=== PATIENT | female | born 1960 ===

== ENCOUNTER 2016-08-20 08:26 | Emergency (ER) | payer MEDICAID ==
[2016-08-20 08:33] VITALS: BP 125/79; TEMP 98
[2016-08-20 08:35] VITALS: BMI 27.4
[2016-08-20 08:45] VITALS: PULSE 58; O2SAT 98
--- NOTE | 2016-08-20 09:17 | ED PDOC ---
Lower Extremity Pain/Injury Time Seen by Provider: 08/20/16 08:30 Chief Complaint (Nursing): Lower Extremity Problem/Injury Chief Complaint (Provider): Left Foot Pain History Per: Patient History/Exam Limitations: no limitations Onset/Duration Of Symptoms: Days (x1) Current Symptoms Are (Timing): Still Present Additional Complaint(s): Rupal Youngblood is a 55 year old female with a history of hypothyroidism that presents to the ED with a chief complaint of left foot pain that began last night when she was walking downstairs and improperly stepped on her left foot, which had slightly inverted. Patient denies any swelling. Past Medical History Reviewed: Historical Data, Nursing Documentation, Vital Signs Vital Signs: Last Vital Signs Temp 98 F 08/20/16 08:42 Pulse 58 L 08/20/16 08:42 Resp 20 08/20/16 08:42 BP 125/79 08/20/16 08:42 Pulse Ox 98 08/20/16 08:42 - Medical History PMH: Hypothyroidism - Surgical History Surgical History: No Surg Hx - Family History Family History: States: Unknown Family Hx - Social History Current smoker - smoking cessation education provided: Yes (smokes less than 10 cigarettes per day) Alcohol: Social Drugs: Denies - Home Medications Home Medications: Ambulatory Orders Medication Instructions Recorded Metoprolol Tartrate [Lopressor] 12.5 mg PO BID #20 tab 04/09/16 - Allergies Allergies/Adverse Reactions: Allergies Allergy/AdvReac Type Severity Reaction Status Date / Time Penicillins Allergy SWELLING Verified 08/20/16 08:42 Review of Systems Cardiovascular: Negative for: Edema (no left foot swelling) Musculoskeletal: Positive for: Foot Pain (Patient reports pain on dorsum of left foot.) Physical Exam - Reviewed Nursing Documentation Reviewed: Yes Vital Signs Reviewed: Yes - Physical Exam Appears: Positive for: Non-toxic, No Acute Distress Head Exam: Positive for: ATRAUMATIC, NORMOCEPHALIC Skin: Positive for: Normal Color, Warm Cardiovascular/Chest: Positive for: Regular Rate, Rhythm. Negative for: Murmur Respiratory: Positive for: Normal Breath Sounds. Negative for: Wheezing Pulses-Dorsalis Pedis (L): 2+ Pulses-Dorsalis Pedis (R): 2+ Extremity: Positive for: Normal ROM (full ROM left foot.), Tenderness (minimal tenderness to palpation dorsum of left foot.), Capillary Refill (<2 seconds), Other (No skin changes or hematoma on left foot. No open wounds. ). Negative for: Swelling Neurologic/Psych: Positive for: Alert, Oriented - ECG O2 Sat by Pulse Oximetry: 98 (RA) Pulse Ox Interpretation: Normal Medical Decision Making Medical Decision Making: Impression: Left Foot Pain normal exam rule out fracture Plan: * X-Ray Left Ankle AP Lat Post * X-Ray Left Foot AP Lat * Ibuprofen 600 mg PO * Reevaluation 11:35 X-Rays appear negative. Left foot will be wrapped up w rl bandage, patient is advised to follow up with podiatry for further evaluation. Patient is stable for discharge home. Clinical Impression: Foot Injury Scribe Attestation: Documented by Cary Dailey, acting as a scribe for Tod Chacon MD. Provider Scribe Attestation: All medical record entries made by the Scribe were at my direction and personally dictated by me. I have reviewed the chart and agree that the record accurately reflects my personal performance of the history, physical exam, medical decision making, and the department course for this patient. I have also personally directed, reviewed, and agree with the discharge instructions and disposition. Disposition - Clinical Impression Clinical Impression: Foot injury - Patient ED Disposition Is Patient to be Admitted: No Counseled Patient/Family Regarding: Studies Performed, Diagnosis, Need For Followup - Disposition Referrals: [facility] [Outside] Podiatry Clinic [Outside] Disposition: Routine/Home Disposition Time: 11:00 Condition: IMPROVED Additional Instructions: follow up with podiatry for further evaluation return to the ED with any worsening or concerning symptoms. Instructions: Foot Sprain (ED) Forms: [facility] ED School/Work Excuse Print Language: ITALIAN
[2016-08-20 12:11] VITALS: RESP 16
--- NOTE | 2016-08-20 12:40 | RAD ---
PROCEDURE: Left Ankle Radiographs. HISTORY: fall COMPARISON: None FINDINGS: BONES: Normal. No fracture. JOINTS: Normal. No osteoarthritis. Ankle mortise maintained. Talar dome intact SOFT TISSUES: Normal. OTHER FINDINGS: None. IMPRESSION: Normal left ankle radiographs.
--- NOTE | 2016-08-20 12:40 | RAD ---
PROCEDURE: Left Foot Radiographs. HISTORY: foot pain COMPARISON: None. FINDINGS: BONES: Normal. No fracture. JOINTS: Normal. SOFT TISSUES: Normal. OTHER FINDINGS: None. IMPRESSION: Normal left foot radiographs.
== END 2016-08-20 12:09 | disposition home or self-care (01) ==
LOC: H.ER 08:26
DX: S99.922A Unspecified injury of left foot, initial encounter (principal); X50.9XXA Other and unspecified overexertion or strenuous movements or postures, initial encounter; Y92.89 Other specified places as the place of occurrence of the external cause; E03.9 Hypothyroidism, unspecified; Z88.0 Allergy status to penicillin

== ENCOUNTER 2016-11-22 09:11 | Emergency (ER) | payer MEDICAID ==
[2016-11-22 09:45] VITALS: BMI 19.3
[2016-11-22] MEDS ORDERED: Sodium Chloride 0.9% 1,000 ML IV STA (09:52)
--- NOTE | 2016-11-22 09:55 | ED PDOC ---
HPI: Abdomen Time Seen by Provider: 11/22/16 09:27 Chief Complaint (Nursing): Abdominal Pain Chief Complaint (Provider): Abd pain History Per: Patient History/Exam Limitations: no limitations Onset/Duration Of Symptoms: Days (Wed) Additional Complaint(s): Diffuse abd pain that is bubbling. Nausea, vomit, diarrhea, nonbloody. Had pork Tues and symptoms started Wed. Saw pcp and given zofran and cipro. Took imodium as well. States the diarrhea has stopped but still has the bubbling and nausea. No weakness, headaches, chest pain, dyspnea, weakness, fever. Has bodyaches. No dysuria. No fever. Past Medical History Reviewed: Nursing Documentation, Vital Signs Vital Signs: Last Vital Signs Temp 99.1 F 11/22/16 09:30 Pulse 68 11/22/16 09:30 Resp 16 11/22/16 09:30 BP 116/64 11/22/16 09:30 Pulse Ox 98 11/22/16 11:26 - Medical History PMH: Hypothyroidism - Surgical History Surgical History: No Surg Hx - Family History Family History: States: Unknown Family Hx - Social History Current smoker - smoking cessation education provided: No Alcohol: None Drugs: Denies - Home Medications Home Medications: Ambulatory Orders Medication Instructions Recorded Metoprolol Tartrate [Lopressor] 12.5 mg PO BID #20 tab 04/09/16 - Allergies Allergies/Adverse Reactions: Allergies Allergy/AdvReac Type Severity Reaction Status Date / Time Penicillins Allergy SWELLING Verified 08/20/16 08:42 Review of Systems ROS Statement: Except As Marked, All Systems Reviewed And Found Negative Gastrointestinal: Positive for: Nausea, Vomiting, Abdominal Pain, Diarrhea Musculoskeletal: Positive for: Other (body aches) Physical Exam - Reviewed Nursing Documentation Reviewed: Yes Vital Signs Reviewed: Yes - Physical Exam Appears: Positive for: Non-toxic, No Acute Distress Head Exam: Positive for: ATRAUMATIC, NORMAL INSPECTION, NORMOCEPHALIC Skin: Positive for: Normal Color, Warm, DRY Eye Exam: Positive for: EOMI, Normal appearance, PERRL ENT: Positive for: Normal ENT Inspection Neck: Positive for: Normal, Painless ROM Cardiovascular/Chest: Positive for: Regular Rate, Rhythm Respiratory: Positive for: CNT, Normal Breath Sounds Gastrointestinal/Abdominal: Positive for: Bowel Sounds, Soft, Tenderness ( diffuse) Back: Positive for: Normal Inspection. Negative for: L CVA Tenderness, R CVA Tenderness Extremity: Positive for: Normal ROM. Negative for: Tenderness, Pedal Edema Neurologic/Psych: Positive for: Alert, Oriented - Laboratory Results Result Diagrams: 11/22/16 10:09 11/22/16 10:09 Interpretation Of Abn Labs: 11 wbc - ECG O2 Sat by Pulse Oximetry: 98 - Progress ED Course And Treament: 1126: Still has pain. Will get Ct. 1454: Stable. Dr. Garcia to take over care. Fu ct. Disposition - Clinical Impression Clinical Impression: Abdominal pain - Patient ED Disposition Is Patient to be Admitted: Transfer of Care - Disposition Disposition: Transfer of Care Disposition Time: 14:54 Condition: STABLE Patient Signed Over To: Kamilah Garcia
[2016-11-22 10:16] LABS: BASO # 0.1 K/uL (0.0-0.2); EOS # 0.2 K/uL (0.0-0.7); EOS % 1.9 % (0.0-4.0); HEMATOCRIT 41.2 % (34.0-47.0); LYMPH # 3.2 K/uL (1.0-4.3); LYMPH % 28.6 % (20.0-40.0); MEAN CORPUSCULAR HEMOGLOBIN 30.9 pg (27.0-31.0); MEAN CORPUSCULAR HGB CONC 33.2 g/dL (33.0-37.0); MEAN PLATELET VOLUME 10.1 fl (7.2-11.7); MONO # 0.8 K/uL (0.0-0.8); MONO % 7.1 % (0.0-10.0); NEUT # 6.8 K/uL (1.8-7.0); NEUT % 61.4 % (50.0-75.0); RED CELL DISTRIBUTION WIDTH 14.3 % (11.5-14.5)
[2016-11-22 10:36] LABS: ALB/GLOB RATIO 1.4 (1.0-2.1); ALKALINE PHOSPHATASE 93 U/L (38-126); ALT/SGPT 34 U/L (9-52); AST/SGOT 31 U/L (14-36); BILIRUBIN,TOTAL 0.4 mg/dl (0.2-1.3); BLOOD UREA NITROGEN 13 mg/dl (7-17); CALCIUM 8.6 mg/dL (8.4-10.2); CARBON DIOXIDE 25 mmol/L (22-30); CHLORIDE 108 mmol/L (98-107); GFR AFRICAN-AMERICAN > 60; GLUCOSE,RANDOM 100 mg/dL (65-105); LIPASE 17 U/L (23-300); POTASSIUM 3.9 MMOL/L (3.6-5.0); SODIUM 145 mmol/l (132-148); TOTAL PROTEIN 7.2 G/DL (6.3-8.2)
[2016-11-22] MEDS ORDERED: Iohexol 240 (50 ml) PO ONE (11:25)
[2016-11-22] MEDS ORDERED: Iohexol 240 (50 ml) ONE (11:50)
[2016-11-22] MEDS ORDERED: Iohexol 300 100 ML IJ ONE (14:03)
[2016-11-22] MEDS ORDERED: Sodium Chloride 0.9% 50 ML IV ONE (14:04)
--- NOTE | 2016-11-22 15:07 | CT ---
PROCEDURE: CT Abdomen and Pelvis with contrast HISTORY: abd pain COMPARISON: None. TECHNIQUE: Contrast dose: 95 milliliters Radiation dose: Total exam DLP = 1025 mGy-cm. This CT exam was performed using one or more of the following dose reduction techniques: Automated exposure control, adjustment of the mA and/or kV according to patient size, and/or use of iterative reconstruction technique. FINDINGS: LOWER THORAX: Minor atelectasis. No infiltrate or effusion. Visualized distal esophagus is unremarkable. LIVER: Mildly fatty infiltration of the liver. There is an area of focal round higher density seen in the central aspect of the quadrate lobe on axial images 36 through 44 series 3 and coronal images 46 through 51. This 3.3 x 2.0 x 2.7 cm. This probably reflects an area of focal fatty sparing. Other etiologies including small hemangioma could not be excluded, although considered less likely. Follow-up ultrasound as an outpatient would be suggested. GALLBLADDER AND BILE DUCTS: Unremarkable. PANCREAS: Unremarkable. No gross lesion or ductal dilatation. SPLEEN: Unremarkable. ADRENALS: Unremarkable. No mass. KIDNEYS AND URETERS: Unremarkable. No hydronephrosis. No solid mass. VASCULATURE: Unremarkable. No aortic aneurysm. BOWEL: No bowel wall thickening or pericolonic inflammatory process is identified. No small bowel dilatation or small bowel obstruction is noted. APPENDIX: Normal appendix. PERITONEUM: No ascites is seen. No mesenteric or omental thickening is noted. LYMPH NODES: Small scattered subcentimeter retroperitoneal lymph nodes and minimal mesenteric lymph nodes. BLADDER: Unremarkable. REPRODUCTIVE: Unremarkable. BONES: Degenerative disc disease is noted in the lumbar spine. No lytic process or fracture is noted. OTHER FINDINGS: None. IMPRESSION: No appreciable acute inflammatory process in the abdomen or pelvis. In particular there is no evidence of bowel obstruction or colitis. There is underfilling of the rectosigmoid region limiting evaluation. No CT scan evidence of appendicitis. Focal round demarcated area of increased density in the posterior central quadrate lobe region of the liver within a diffusely fatty infiltrated liver. Finding more than likely represents an area of focal fatty sparing. Other etiologies including hemangioma are not excluded. Follow-up outpatient ultrasound or MRI would be suggested for further evaluation.
[2016-11-22 15:28] VITALS: BP 122/74; PULSE 70; RESP 18; TEMP 96.3; O2SAT 97
== END 2016-11-22 15:28 | disposition home or self-care (01) ==
LOC: H.ER 09:11
DX: R10.9 Unspecified abdominal pain (principal); Z88.0 Allergy status to penicillin; E03.9 Hypothyroidism, unspecified
CPT/HCPCS: 74177; 80053; 83690; 85025; 96374; 99285; J1885; J2270; J2405; J7040; Q9966; Q9967

== ENCOUNTER 2017-12-07 18:06 | Emergency (ER) | payer MEDICAID ==
[2017-12-07 18:06] VITALS: BMI 27.4
[2017-12-07 18:39] VITALS: BP 133/68; PULSE 78; RESP 18; TEMP 97.7; O2SAT 99
--- NOTE | 2017-12-07 18:52 | ED PDOC ---
HPI: Hypertension/Hypotension Time Seen by Provider: 12/07/17 18:41 Chief Complaint (Nursing): Palpitations History Per: Patient Onset/Duration Of Symptoms: Days (1) Current Symptoms Are (Timing): Still Present Associated Symptoms: denies: Chest Pain, Dyspnea, Focal Weakness, Headache Quality Of Symptoms: Rapid Heart Rate Severity: Mild Pain Scale Rating Of: 0 Exacerbating Factor(s): Pos: Injestion Of Caffeinated Beverages Past Medical History Reviewed: Historical Data, Nursing Documentation, Vital Signs Vital Signs: Last Vital Signs Temp 97.7 F 12/07/17 18:13 Pulse 78 12/07/17 18:13 Resp 18 12/07/17 18:13 BP 133/68 12/07/17 18:13 Pulse Ox 99 12/07/17 18:13 - Medical History PMH: Hypothyroidism - Surgical History Surgical History: No Surg Hx - Family History Family History: States: Unknown Family Hx - Home Medications Home Medications: Ambulatory Orders Medication Instructions Recorded RX: Metoprolol Tartrate [Lopressor] 12.5 mg PO BID #20 tab 04/09/16 Famotidine [Pepcid] 20 mg PO DAILY PRN #6 tab 11/22/16 Ibuprofen [Motrin] 600 mg PO TID 7 Days tab 11/22/16 - Allergies Allergies/Adverse Reactions: Allergies Allergy/AdvReac Type Severity Reaction Status Date / Time Penicillins Allergy SWELLING Verified 08/20/16 08:42 Review of Systems ROS Statement: Except As Marked, All Systems Reviewed And Found Negative Musculoskeletal: Positive for: Foot Pain (injury) Physical Exam - Reviewed Nursing Documentation Reviewed: Yes Vital Signs Reviewed: Yes - Physical Exam Appears: Positive for: Non-toxic, No Acute Distress Head Exam: Positive for: ATRAUMATIC, NORMAL INSPECTION Skin: Positive for: Warm, Dry Eye Exam: Positive for: EOMI Cardiovascular/Chest: Positive for: Regular Rate, Rhythm Respiratory: Positive for: Normal Breath Sounds Gastrointestinal/Abdominal: Positive for: Soft. Negative for: Tenderness Extremity: Positive for: Normal ROM, Other (rihgt foot 4-5 toes swelling echimosis) Neurologic/Psych: Positive for: Alert, Oriented - Laboratory Results Result Diagrams: 12/07/17 19:18 12/07/17 19:18 - ECG O2 Sat by Pulse Oximetry: 99 Medical Decision Making Medical Decision Making: Impression Palpitations, right foot pain with injury Diff include cardiac arrhythmia, anxiety, ACS R/o foot fracture Plan EKG Labs Foot xray reassess Disposition - Clinical Impression Clinical Impression: Palpitations, Foot injury - Patient ED Disposition Is Patient to be Admitted: No Counseled Patient/Family Regarding: Studies Performed, Diagnosis - Disposition Referrals: Samir Obrien [Family Provider] - Disposition: Transfer of Care Disposition Time: 19:00 Condition: STABLE Instructions: Palpitations Forms: [employer] (Libyan), [facility] ED School/Work Excuse Patient Signed Over To: Lucian Hoyt
[2017-12-07 19:22] LABS: BASO # 0.1 K/uL (0.0-0.2); BASO % 0.8 % (0.0-2.0); EOS # 0.5 K/uL (0.0-0.7); EOS % 4.3 % (0.0-4.0); HEMOGLOBIN 13.5 g/dL (12.0-16.0); LYMPH # 4.1 K/uL (1.0-4.3); LYMPH % 36.1 % (20.0-40.0); MEAN CELL VOLUME 95.2 fl (81.0-99.0); MEAN CORPUSCULAR HEMOGLOBIN 31.7 pg (27.0-31.0); MEAN CORPUSCULAR HGB CONC 33.3 g/dL (33.0-37.0); MEAN PLATELET VOLUME 10.2 fl (7.2-11.7); MONO # 0.8 K/uL (0.0-0.8); MONO % 7.2 % (0.0-10.0); NEUT # 5.8 K/uL (1.8-7.0); NEUT % 51.6 % (50.0-75.0); NRBC % 0.1 % (0.0-0.0); RBC 4.27 Mil/uL (3.80-5.20); RED CELL DISTRIBUTION WIDTH 13.7 % (11.5-14.5); WHITE BLOOD COUNT 11.3 K/uL (4.8-10.8)
--- NOTE | 2017-12-07 19:23 | ED PDOC ---
- Laboratory Results Result Diagrams: 12/07/17 19:18 12/07/17 19:18 - ECG O2 Sat by Pulse Oximetry: 99 (RA) Pulse Ox Interpretation: Normal Medical Decision Making Medical Decision Making: Time: 1899 --Patient signed out to this provider by Dr. Recinos, pending XR, labs and reevaluation. Time: 2121 --XR demonstrate no fracture or dislocation. Labs reviewed and demonstrate no clinically significant abnormalities. She has an appointment with Dr. Obrien tomorrow. Patient reports she feels improvement in symptoms. Diagnoses foot inj ury and palpitations. Scribe Attestation: Documented by Valencia Loya, acting as a scribe for Lucian Hoyt MD Provider Scribe Attestation: All medical record entries made by the Scribe were at my direction and personally dictated by me. I have reviewed the chart and agree that the record accurately reflects my personal performance of the history, physical exam, medical decision making, and the department course for this patient. I have also personally directed, reviewed, and agree with the discharge instructions and disposition. Disposition - Clinical Impression Clinical Impression: Palpitations, Foot injury - POA Present On Arrival: Falls Or Trauma - Disposition Referrals: Samir Obrien [Family Provider] - Disposition: Routine/Home Disposition Time: 21:00 Condition: STABLE Instructions: Palpitations Forms: [employer] (Ivorian), [facility] ED School/Work Excuse
[2017-12-07 19:50] LABS: BLOOD UREA NITROGEN 20 mg/dl (7-17); CALCIUM 9.3 mg/dL (8.4-10.2); GFR NON-AFRICAN AMERICAN > 60
--- NOTE | 2017-12-08 08:26 | RAD ---
Date of service: 12/07/2017 PROCEDURE: Right Foot Radiographs. HISTORY: right foot injury COMPARISON: None. FINDINGS: BONES: There is diffuse bone demineralization. There is no acute displaced fracture or bone destruction. Bone alignment is normal. JOINTS: Mild degenerative osteoarthrosis in the 1st MTP joint. SOFT TISSUES: Normal. OTHER FINDINGS: None. IMPRESSION: No acute fracture or dislocation.
== END 2017-12-07 21:31 | disposition home or self-care (01) ==
LOC: H.ER 18:06
DX: R00.2 Palpitations (principal); S99.921A Unspecified injury of right foot, initial encounter; I10 Essential (primary) hypertension; Z88.0 Allergy status to penicillin; E03.9 Hypothyroidism, unspecified

== ENCOUNTER 2018-04-18 07:33 | Emergency (ER) | payer MEDICAID ==
[2018-04-18 07:42] VITALS: BMI 28.3
[2018-04-18] MEDS ORDERED: Sodium Chloride 0.9% 1,000 ML IV STA (08:04)
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
[2018-04-18 09:24] LABS: BASO % 0.3 % (0.0-2.0); EOS # 0.1 K/uL (0.0-0.7); EOS % 1.4 % (0.0-4.0); HEMOGLOBIN 14.6 g/dL (12.0-16.0); LYMPH # 2.3 K/uL (1.0-4.3); LYMPH % 21.4 % (20.0-40.0); MEAN CELL VOLUME 94.6 fl (81.0-99.0); MEAN CORPUSCULAR HEMOGLOBIN 31.6 pg (27.0-31.0); MEAN CORPUSCULAR HGB CONC 33.4 g/dL (33.0-37.0); MEAN PLATELET VOLUME 10.4 fl (7.2-11.7); MONO # 0.7 K/uL (0.0-0.8); MONO % 6.3 % (0.0-10.0); NEUT # 7.4 K/uL (1.8-7.0); NEUT % 70.6 % (50.0-75.0); NRBC % 0.1 % (0.0-0.0); RBC 4.61 Mil/uL (3.80-5.20); RED CELL DISTRIBUTION WIDTH 13.9 % (11.5-14.5); WHITE BLOOD COUNT 10.6 K/uL (4.8-10.8)
[2018-04-18 09:32] LABS: BLOOD UREA NITROGEN 10 mg/dl (7-17); CALCIUM 9.9 mg/dL (8.4-10.2); GFR NON-AFRICAN AMERICAN > 60
[2018-04-18 09:33] LABS: SQUAMOUS EPITHIAL < 1 /hpf (0-5); URINE BILIRUBIN NEGATIVE (NEGATIVE); URINE BLOOD NEGATIVE (NEGATIVE); URINE CLARITY CLEAR (Clear); URINE COLOR YELLOW (YELLOW); URINE GLUCOSE (UA) NEG (NEGATIVE); URINE LEUKOCYTE ESTERASE NEG Leu/uL (Negative); URINE PROTEIN NEGATIVE (NEGATIVE); URINE UROBILINOGEN 0.2-1.0 mg/dL (0.2-1.0)
[2018-04-18 09:43] LABS: OPIATES, UR NEGATIVE (NEGATIVE)
[2018-04-18 09:44] LABS: BARBITURATES, UR NEGATIVE (NEGATIVE); BENZODIAZEPINES, UR NEGATIVE (NEGATIVE); PHENCYCLIDINE, UR NEGATIVE (NEGATIVE)
[2018-04-18 11:50] VITALS: RESP 20
[2018-04-18 12:36] VITALS: BP 142/71; PULSE 88; TEMP 98.7; O2SAT 99
--- NOTE | 2018-04-18 19:58 | CARD ---
APPROVED REPORT Date of service: 04/18/2018 EKG Measurement Heart [id number] <Conclusion> Normal sinus rhythm Possible Left atrial enlargement Nonspecific ST abnormality Abnormal ECG
== END 2018-04-18 12:26 | disposition home or self-care (01) ==
LOC: H.ER 07:33
DX: R00.2 Palpitations (principal); F19.10 Other psychoactive substance abuse, uncomplicated; F43.22 Adjustment disorder with anxiety; E03.9 Hypothyroidism, unspecified; I10 Essential (primary) hypertension; Z88.0 Allergy status to penicillin
CPT/HCPCS: 80048; 80320; 80324; 80345; 80346; 80349; 80353; 80358; 80361; 81003; 83992; 84484; 85025; 93005; 96372; 96374; 99284; J1885; J2060; J7030